=== PATIENT | male | born 1965 | race Caucasian/White ===

== ENCOUNTER 2021-08-15 20:27 | Emergency (ER) | payer OTHER ==
[2021-08-15 21:03] LABS: BASOPHIL 0.8 % (0-2); EOSINOPHIL 2.2 % (0-5); HCT 48.3 % (42.0-52.0); HGB 16.9 g/dl (13.2-18.0); LYMPHOCYTE 34.8 % (15-48); MCH 30.2 pg (25.0-31.0); MCV 86.4 fL (78.0-100.0); MONOCYTE 9.6 % (0-12); MPV 9.6 fL (6.0-9.5); NEUTROPHIL 52.5 % (41-80); NRBC 0; PLT 266 K/uL (150-400); RBC 5.59 M/uL (4.70-6.00); RDW 13.2 % (11.5-14.0); WBC 7.8 K/uL (4.0-10.5)
[2021-08-15 21:24] LABS: BUN/CREAT RATIO (CALC) 14.2 RATIO; CREATININE 1.13 mg/dL (0.67-1.17); POTASSIUM 3.6 mmol/L (3.5-5.1)
[2021-08-15 21:39] LABS: CORONAVIRUS 2019 SARS-COV-2 NEGATIVE (NEGATIVE); INFLUENZA A NAA NEGATIVE (NEGATIVE)
== END 2021-08-16 00:29 | disposition home or self-care (01) ==
LOC: FER 20:27
PROVIDERS: Internal Medicine
DX: R06.02 Shortness of breath (principal); R59.0 Localized enlarged lymph nodes; Z86.16 Personal history of COVID-19; Z20.822 Contact with and (suspected) exposure to COVID-19
CPT/HCPCS: 36415; 71275; 80048; 84145; 84484; 85025; 93005; Q9967; U0002